=== PATIENT | male | born 1985 | race Caucasian/White ===

== ENCOUNTER → 2021-03-22 | Outpatient (CLI) | payer OTHER ==
--- NOTE | 2021-03-22 16:30 | XR ---
EXAMINATION TYPE: XR knee limited LT DATE OF EXAM: 03/22/2021 COMPARISON: None HISTORY: 35-year-old male with lateral knee pain after kneeling on rocks a couple weeks ago. Patient has sharp needlelike pain TECHNIQUE: AP and lateral views of the left knee were obtained, limited study FINDINGS: No evidence of acute fracture or dislocation of the left knee. The medial and lateral brigitte rtment joint spaces and patellofemoral compartment joint space are well maintained.. Soft tissues are unremarkable. IMPRESSION: 1. No evidence of acute fracture or dislocation of the left knee.
== END | disposition home or self-care (01) ==
LOC: RADXRMAIN 13:51
PROVIDERS: ATTEND Internal Medicine
DX: M25.562 Pain in left knee (principal)

== ENCOUNTER → 2023-11-18 | Outpatient (CLI) | payer OTHER ==
[2023-11-18 15:03] LABS: HCT 46.9 % (39.6-50.0); MCH 31.4 pg (27.0-32.0); MCHC 34.1 g/dL (32.0-37.0); MCV 92.1 FL (80.0-97.0); Mean Platelet Volume 10.3 FL (9.5-12.2); NRBC Per 100 WBC 0 X 10*3/uL (0.00-0.01); Platelet Count 304 X 10*3/uL (140-440); RBC 5.09 X 10*6/uL (4.40-5.60); RDW 12.4 % (11.5-14.5); WBC 6.56 X 10*3/uL (4.50-10.00)
[2023-11-18 15:10] LABS: ALT 75 U/L (10-49); AST 35 U/L (14-35); BUN/Creat Ratio 13.44 Ratio (12.00-20.00); Blood Urea Nitrogen 12.1 mg/dL (9.0-27.0); Calcium 10.1 mg/dL (8.7-10.3); Carbon Dioxide 22.5 mmol/L (21.6-31.8); Chloride 102 mmol/L (96-109); Chol/HDL Ratio 3.59 Ratio; Glucose 110 mg/dL (70-110); LDL Cholesterol,Calculated 106.1 mg/dL (0.0-131.0); Potassium 4.6 mmol/L (3.5-5.5); Sodium 138 mmol/L (135-145)
== END | disposition home or self-care (01) ==
LOC: LABWHC1 09:07
PROVIDERS: ATTEND Internal Medicine Cardiovascular Disease
DX: I10 Essential (primary) hypertension (principal); E78.2 Mixed hyperlipidemia
CPT/HCPCS: 36415; 80048; 80061; 84443; 84450; 84460; 85027

== ENCOUNTER → 2024-01-17 | Outpatient (CLI) | payer OTHER | END | disposition home or self-care (01) | LOC: LABWHC1 10:57 | PROVIDERS: ATTEND Internal Medicine Cardiovascular Disease | DX: I10 Essential (primary) hypertension (principal) | CPT/HCPCS: 36415; 82088; 82533; 83835; 84244 ==

== ENCOUNTER → 2025-01-21 | Outpatient (CLI) | payer OTHER ==
[2025-01-21 14:49] LABS: Basophils # (A) 0.07 X 10*3/uL (0.00-0.10); Basophils % (A) 0.9 %; Eosinophils # (A) 0.26 X 10*3/uL (0.04-0.35); Eosinophils % (A) 3.4 %; HCT 44.7 % (39.6-50.0); HGB 15.6 g/dL (13.0-17.0); Lymphocytes # (A) 2.34 X 10*3/uL (0.90-5.00); Lymphocytes % (A) 30.5 %; MCHC 34.9 g/dL (32.0-37.0); MCV 91.8 FL (80.0-97.0); Monocytes # (A) 0.65 X 10*3/uL (0.20-1.00); Monocytes % (A) 8.5 %; NRBC Per 100 WBC 0 X 10*3/uL (0.00-0.01); Neutrophils # (A) 4.34 X 10*3/uL (1.80-7.70); Neutrophils % (A) 56.6 %; Platelet Count 288 X 10*3/uL (140-440); RBC 4.87 X 10*6/uL (4.40-5.60); RDW 12.2 % (11.5-14.5); WBC 7.67 X 10*3/uL (4.50-10.00)
[2025-01-21 19:09] LABS: Anion Gap 13.1 mmol/L (4.00-12.00); Carbon Dioxide 23.9 mmol/L (21.6-31.8); Potassium 4.2 mmol/L (3.5-5.5)
== END | disposition home or self-care (01) ==
LOC: LABPAT 11:33
PROVIDERS: ATTEND Orthopaedic Surgery
DX: Z01.812 Encounter for preprocedural laboratory examination (principal); M23.91 Unspecified internal derangement of right knee
CPT/HCPCS: 36415; 80051; 85025

== ENCOUNTER 2025-02-01 09:25 | Day surgery (SDC) | payer OTHER ==
--- NOTE | 2025-01-31 14:00 | HP ---
HISTORY AND PHYSICAL DATE OF SURGERY: 02/01/2025. HISTORY OF PRESENT ILLNESS: Ra Riojas, 39-year-old gentleman, seen with progressive right knee pain. We discussed options regarding treatment. He elected to proceed with right knee arthroscopy. Consents obtained. PAST MEDICAL HISTORY: Hypertension. PAST SURGICAL HISTORY: Right knee arthroscopy. DAILY MEDICATIONS: 1. Amlodipine. 2. Metoprolol. ALLERGIES: Codeine. SOCIAL HISTORY: He denies tobacco use. PHYSICAL EVALUATION: Of the right knee, his range of motion is negative 2/3 to 130 degrees. Tenderness on the medial and lateral joint line. Positive medial Tripp's. Positive lateral Tripp's. Ligaments stable. Hip rotation without pain. Distal neurovascular examination is intact. IMAGING DATA: Radiographs of right knee, mild osteoarthritis. MRI right knee, ACL tear, lateral meniscal tear. IMPRESSION: Internal derangement of right knee with lateral meniscal tear and anterior cruciate ligament tear. PLAN: Right knee arthroscopy with partial lateral meniscectomy and debridement. MMODL / IJN: [id number] /
[~2025-02-01 09:25] MED LIST: MIDAZOLAM 2 MG/2 ML VIAL IV PRN; SCOPOLAMINE 1 MG/72 HR PATCH TRANSDERM ONE
[2025-02-01] MEDS: DEXAMETHASONE SOD PHOSPHATE 4 MG/ML 1 ML VIAL IV ONE (10:00)
[2025-02-01] MEDS: ONDANSETRON 4 MG/2 ML VIAL IVP ONE (10:00)
[2025-02-01] MEDS: LACTATED RINGERS 1,000 ML IV SCH (10:01)
[2025-02-01] MEDS: FAMOTIDINE 20 MG/2 ML VIAL IV STA (10:04)
[2025-02-01] MEDS: IV FLUID CONTINUATION 1,000 ML IV ONE ×2 (10:04→11:54)
[2025-02-01] MEDS ORDERED: LIDOCAINE 1% INJ 10MG/ML (20 ML MDV) ONE (10:36)
[2025-02-01] MEDS ORDERED: SUCCINYLCHOLINE CHLORIDE 200 MG/10 ML VIAL IV ONE (10:36)
[2025-02-01] MEDS ORDERED: KETOROLAC 15 MG/ML 1 ML VIAL ONE (10:36)
[2025-02-01] MEDS ORDERED: PROPOFOL 10 MG/ML 20 ML VIAL IV ONE (10:36)
[2025-02-01] MEDS ORDERED: fentaNYL (PF) 50 MCG/ML 2 ML AMP ONE (10:36)
[2025-02-01] MEDS ORDERED: MIDAZOLAM 2 MG/2 ML VIAL ONE (10:36)
[2025-02-01] MEDS: ceFAZolin 2 GM in DEXTROSE 5% IN WATER 50 ML IVPB PRN (10:40)
[2025-02-01] MEDS: BUPIVACAINE (PF) 0.25% 30 ML VIAL SQ ONE (11:12)
[2025-02-01 11:45] VITALS: RESP 16; TEMP 97.5
[2025-02-01] MEDS: fentaNYL (PF) 50 MCG/ML 2 ML AMP IV PRN (11:50)
--- NOTE | 2025-02-01 11:51 | P.OP ---
Date of Procedure: 02/01/25 Preoperative Diagnosis: Internal derangement right knee Postoperative Diagnosis: 1. Tear medial and lateral meniscus right knee 2. Reactive synovitis medial, lateral and suprapatellar compartments right knee 3. 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 Grade II/III chondromalacia lateral femoral condyle right knee 5. ACL tear right knee Procedure(s) Performed: 1. Arthroscopic partial medial and lateral meniscectomy right knee 2. Arthroscopic partial synovectomy medial, lateral and suprapatellar compartments right knee 3. Arthroscopic chondroplasty medial femoral condyle right knee 4. Arthroscopic chondroplasty lateral femoral condyle right knee Anesthesia: KESHAWNA, local Surgeon: Ever Carrillo Estimated Blood Loss (ml): 5 Pathology: none sent Condition: stable Disposition: PACU Indications for Procedure: 39-year-old patient seen with progressive right knee pain. After having treatment options discussed, he elected to proceed with arthroscopy. Operative Findings: See description of procedure Description of Procedure: Patient was taken to the operative suite. Patient underwent a general anesthetic by the department of anesthesia. Patient was given preoperative antibiotics. The right lower extremity was placed in a well-padded arthroscopic leg mondragon. The right leg was prepped and draped in the normal sterile orthopedic fashion. A lateral parapatellar and suprapatellar incision was made. Trochars were inserted. Arthroscopy was initiated. Suprapatellar pouch revealed diffuse thick reactive synovitis. The patellofemoral joint appeared to articulate congruently. There was no significant chondromalacia involving the patellofemoral joint. The scope was guided into the medial gutter. No loose bodies or plica were identified the scope was then guided into the medial compartment. A medial parapatellar incision was made. Trocar inserted followed by probe. There was a tear involving the posterior horn medial meniscus. There were grade I/II chondromalacia changes of the medial femoral condyle with some osteochondral flap tears. There was thick reactive synovitis anteriorly. I performed a partial medial meniscectomy getting down to stable meniscal tissue. I performed a chondroplasty of the medial femoral condyle getting down to stable osteochondral tissue. I performed a partial synovectomy decompressing the thick reactive synovitis anteriorly. The residual meniscus was probed and was found to be stable. The residual osteochondral surface appeared stable. Again noting grade I/II chondromalacia. There was good decompression of the synovitis. Scope and probe were then guided into the intercondylar notch. The anterior crucial ligament was absent with no remnants remaining consistent with a chronic tear. The PCL appeared stable.. The scope and probe were then guided into lateral compartment. There was a tear involving the posterior horn of the lateral meniscus. There were grade II/III chondromalacia changes of the lateral femoral condyle with some osteochondral flap tears. There was thick reactive synovitis anteriorly. I performed a partial lateral meniscectomy getting down to stable meniscal tissue. I performed a chondroplasty of the lateral femoral condyle getting down to stable osteochondral tissue. I performed a partial synovectomy decompressing the reactive synovitis. The residual meniscus was probed and was found to be stable. The residual osteochondral surface was stable again noting grade II/III chondromalacia of the lateral femoral condyle. There was good decompression of the synovitis. The scope was in guided back into the suprapatellar compartment. I introduced a motorized shaver into the suprapatellar compartment. I debrided some piecemeal fragments of meniscus I encountered. I performed a partial synovectomy. The shaver was now removed. There was good decompression of the synovitis. I now took 1 more look around the entire knee, no residual debris. Instruments were now removed from the joint. The joint was infiltrated with .25% Marcaine. Steri-Strips were applied to the portal sites. Sterile dressings were applied. The patient was placed into a KEM hose. No tourniquet was utilized. The patient was awakened, transferred to a bed and taken to recovery stable satisfactory condition.
[2025-02-01 12:54] VITALS: BP 123/88; PULSE 85
== END 2025-02-01 13:24 | disposition home or self-care (01) ==
LOC: OR 09:25
PROVIDERS: ATTEND Orthopaedic Surgery
DX: S83.281A Other tear of lateral meniscus, current injury, right knee, initial encounter (principal); S83.241A Other tear of medial meniscus, current injury, right knee, initial encounter; S83.511A Sprain of anterior cruciate ligament of right knee, initial encounter; M17.11 Unilateral primary osteoarthritis, right knee; M94.261 Chondromalacia, right knee; M65.861 Other synovitis and tenosynovitis, right lower leg; I10 Essential (primary) hypertension; K21.9 Gastro-esophageal reflux disease without esophagitis; Z79.899 Other long term (current) drug therapy; Z87.891 Personal history of nicotine dependence; Z88.5 Allergy status to narcotic agent; X58.XXXA Exposure to other specified factors, initial encounter
CPT/HCPCS: 29880; 29876; J2250; J0330; J1100; J0690; J2405; J2003; J3010; J3490; J1885; J2704; J0665

== ENCOUNTER → 2025-04-13 | Outpatient (CLI) | payer OTHER ==
--- NOTE | 2025-04-13 16:15 | US ---
EXAMINATION TYPE: US venous doppler duplex LE RT DATE OF EXAM: 04/13/2025 4:02 PM COMPARISON: NONE CLINICAL INDICATION: Male, 39 years old with history of RIGHT I80.9 PHLEBITIS AND THROMBOPHLEBITIS OF UNSP; knee surgery February 01, edema, Pain TECHNIQUE: The lower extremity deep venous system is examined utilizing real time linear array sonog bela with graded compression, color doppler sonography, and spectral doppler. SIDE PERFORMED: Right FINDINGS: VESSELS IMAGED: Common Femoral Vein Deep Femoral Vein Greater Saphenous Vein * Femoral Vein Popliteal Vein Small Saphenous Vein * Proximal Calf Veins (* superficial vessels) Right Leg: Negative for DVT, Color Doppler imaging shows patency of the vessels. Spectral waveforms are within normal limits. exa limited by edema complex collection measures 5.4x1.7x4.7cm at the posterior knee arising from the joint space IMPRESSION: 1. No ultrasound evidence for deep venous thrombosis. 2. Complex popliteal fossa cyst posterior to the right knee. Consider further evaluation with MRI as clinically warranted. [facility], , 04/13/2025 4:12 PM
== END | disposition home or self-care (01) ==
LOC: RADUSWWP 15:27
PROVIDERS: ATTEND Orthopaedic Surgery
DX: M71.21 Synovial cyst of popliteal space [Baker], right knee (principal); I80.9 Phlebitis and thrombophlebitis of unspecified site; R60.9 Edema, unspecified

== ENCOUNTER 2025-05-10 20:15 | Emergency (ER) | payer OTHER ==
[2025-05-10 20:44] VITALS: BP 195/91; PULSE 89; RESP 22; TEMP 98.6
[2025-05-10] MEDS: LORazepam 1 MG/0.5 ML VIAL IM STA (20:53)
[2025-05-10] MEDS: HALOPERIDOL LACTATE 5 MG/ML 1 ML VIAL IM STA (20:53)
--- NOTE | 2025-05-10 21:00 | ED ---
General Adult HPI - General Source: patient, police, EMS, RN notes reviewed Mode of arrival: EMS Limitations: no limitations <Ismael Michael - Last Filed: 05/10/25 20:54> - General Source: patient, police, EMS, RN notes reviewed, old records reviewed Mode of arrival: EMS Limitations: no limitations - History of Present Illness -: unknown Consistency: constant Improves with: none Associated Symptoms: confusion Treatments Prior to Arrival: none <Prabhu Meza - Last Filed: 05/11/25 00:54> - General Chief complaint: Psychiatric Symptoms Stated complaint: Mental health Time Seen by Provider: 05/10/25 20:22 - History of Present Illness Initial comments: Patient is a 39-year-old male presenting to the emergency department by police patrol lieutenant escort for mental health evaluation. Patient reportedly told officers he had suicidal thoughts. Patient admits to being agitated following an argument with his . Patient admits to drinking alcohol, will not state how much. Patient will not consent to breathalyzer. Patient denies any new physical complaints. No homicidal thoughts. Patient denies hallucinations. Patient does have history of PTSD and states he has been taking his medications. Patient is very agitated and keeps yelling that he has been lied to. (Ismael Michael) This is a 39-year-old male by PD for mental health evaluation, patient is under petition (Prabhu Meza) - Related Data Home Medications Medication Instructions Recorded Confirmed Otc Tums 1 tab PO DIRECTED PRN 01/27/25 02/01/25 Acetaminophen [Tylenol Extra 500 mg PO DIRECTED PRN 01/27/25 02/01/25 Strength] Ergocalciferol [Vitamin D2 (1250 1,250 mcg PO ANTONIO 01/27/25 02/01/25 Mcg = 96455 Iu)] Famotidine 20 mg PO DAILY 01/27/25 02/01/25 Metoprolol Succinate [Toprol XL] 100 mg PO DAILY 01/27/25 02/01/25 amLODIPine BESYLATE [Amlodipine 10 mg PO DAILY 01/27/25 02/01/25 Besylate] Previous Rx's Medication Instructions Recorded HYDROcodone/APAP 5-325MG [[place] 1 tab PO Q6HR PRN 3 Days #12 tab 02/01/25 5-325] Allergies Allergy/AdvReac Type Severity Reaction Status Date / Time codeine Allergy Rash/Hives Verified 02/01/25 09:38 tramadol Allergy tingling, Verified 02/01/25 09:38 flushed Review of Systems ROS Other: All systems not noted in ROS Statement are negative. Constitutional: Denies: fever Eyes: Denies: eye pain ENT: Denies: ear pain Cardiovascular: Denies: palpitations Psychiatric: Reports: as per HPI <Ismael Michael - Last Filed: 05/10/25 20:54> ROS Other: All systems not noted in ROS Statement are negative. <Prabhu Meza - Last Filed: 05/11/25 00:54> ROS Statement: Those systems with pertinent positive or pertinent negative responses have been documented in the HPI. Past Medical History Past Medical History: GERD/Reflux, Osteoarthritis (OA) Additional Past Medical History / Comment(s): epigastric pain, deviated septum History of Any Multi-Drug Resistant Organisms: None Reported Past Surgical History: Orthopedic Surgery Additional Past Surgical History / Comment(s): arthroscopy rt knee, oral surgery Past Anesthesia/Blood Transfusion Reactions: No Reported Reaction Past Psychological History: No Psychological Hx Reported Past Alcohol Use History: Daily, Heavy - Past Family History Brother(s) Family Medical History: Cancer Additional Family Medical History / Comment(s): melanoma Mother Family Medical History: No Reported History <Ismael Michael - Last Filed: 05/10/25 20:54> General Exam Limitations: no limitations General appearance: alert (Agitated) Head exam: Present: atraumatic Eye exam: Present: normal appearance Respiratory exam: Present: normal lung sounds bilaterally Cardiovascular Exam: Present: regular rate, normal rhythm GI/Abdominal exam: Present: soft. Absent: tenderness Extremities exam: Present: normal inspection Neurological exam: Present: alert Psychiatric exam: Present: agitated Expanded Focused psych exam: Present: perseverating (Regarding being lied to that he was supposed to go to the [facility] restlessness Skin exam: Present: normal color <Ismael Michael - Last Filed: 05/10/25 20:54> General appearance: alert, in no apparent distress Head exam: Present: atraumatic, normocephalic, normal inspection Eye exam: Present: normal appearance, PERRL, EOMI. Absent: scleral icterus, conjunctival injection, periorbital swelling ENT exam: Present: normal exam, mucous membranes moist Neck exam: Present: normal inspection. Absent: tenderness, meningismus, lymphadenopathy Respiratory exam: Present: normal lung sounds bilaterally. Absent: respiratory distress, wheezes, rales, rhonchi, stridor Cardiovascular Exam: Present: regular rate, normal rhythm, normal heart sounds. Absent: systolic murmur, diastolic murmur, rubs, gallop, clicks GI/Abdominal exam: Present: soft, normal bowel sounds. Absent: distended, tenderness, guarding, rebound, rigid Extremities exam: Present: normal inspection, full ROM, normal capillary refill. Absent: tenderness, pedal edema, joint swelling, calf tenderness Back exam: Present: normal inspection Neurological exam: Present: alert, oriented X3, CN II-XII intact Psychiatric exam: Present: normal affect, normal mood Skin exam: Present: warm, dry, intact, normal color. Absent: rash <Prabhu Meza - Last Filed: 05/11/25 00:54> Course <Prabhu Meza - Last Filed: 05/11/25 00:54> Vital Signs 05/10/25 20:16 Temperature 98.6 F Pulse Rate 89 Respiratory 22 Rate Blood Pressure 195/91 O2 Sat by Pulse 98 Oximetry - Reevaluation(s) Reevaluation #1: 05/11/25 00:53 Medical records reviewed (Prabhu Meza) Reevaluation #2: 05/11/25 00:53 Medical cleared for psychiatric evaluation (Prabhu Meza) Reevaluation #3: Was pt. sent in by a medical professional or institution (, PA, FIBRE TECHNOLOGIST, urgent care, hospital, or alf...) When possible be specific @ -no Did you speak to anyone other than the patient for history (EMS, parent, family, police, friend...)? What history was obtained from this source @ -no Did you review nursing and triage notes (agree or disagree)? Why? @ -agree Are old charts reviewed (outside hosp., previous admission, EMS record, old EKG, old radiological studies, urgent care reports/EKG's, alf records)? Report findings @ -yes Differential Diagnosis (chest pain, altered mental status, abdominal pain women, abdominal pain men, vaginal bleeding, weakness, fever, dyspnea, syncope, headache, dizziness, GI bleed, back pain, seizure, CVA, palpatations, mental health, musculoskeletal)? @ -prior EKG interpreted by me (3pts min.). @ -yes X-rays interpreted by me (1pt min.). @ -yes negative for acute disease CT interpreted by me (1pt min.). @ -no U/S interpreted by me (1pt. min.). @ -no What testing was considered but not performed or refused? (CT, X-rays, U/S, labs)? Why? @ -none What meds were considered but not given or refused? Why? @ -none Did you discuss the management of the patient with other professionals (professionals i.e. , PA, FIBRE TECHNOLOGIST, lab, RT, psych nurse, executive secretary social welfare, draw frame tender, teacher, district resource officer, vocational case manager)? Give summary @ -no Was smoking cessation discussed for >3mins.? @ -no Was critical care preformed (if so, how long)? @ -no Were there social determinants of health that impacted care today? How? (Homelessness, low income, unemployed, alcoholism, drug addiction, transportation, low edu. Level, literacy, decrease access to med. care, long-term, rehab)? @ -none Was there de-escalation of care discussed even if they declined (Discuss DNR or withdrawal of care, Hospice)? DNR status @ -no What co-morbidities impacted this encounter? (DM, HTN, Smoking, COPD, CAD, Cancer, CVA, ARF, Chemo, Hep., AIDS, mental health diagnosis, sleep apnea, morbid obesity)? @ -none Was patient admitted / discharged? Hospital course, mention meds given and route, prescriptions, significant lab abnormalities, going to OR and other pertinent info. @ - Undiagnosed new problem with uncertain prognosis? @ -no Drug Therapy requiring intensive monitoring for toxicity (Heparin, Nitro, Insulin, Cardizem)? @ -no Were any procedures done? @ -no Diagnosis/symptom? @ - Acute, or Chronic, or Acute on Chronic? @ -Acute Uncomplicated (without systemic symptoms) or Complicated (systemic symptoms)? @ -Complicated Side effects of treatment? @ -no Exacerbation, Progression, or Severe Exacerbation? @ -exacerbation Poses a threat to life or bodily function? How? (Chest pain, USA, NM, pneumonia, PE, COPD, DKA, ARF, appy, cholecystitis, CVA, Diverticulitis, Homicidal, Suicidal, threat to staff... and all critical care pts) @ -yes (Prabhu Meza) Reevaluation #4: Differential Mental Health Depression, anxiety, bipolar, psychosis, schizophrenia, borderline personality, situational depression, adjustment disorder, behavioral disorder, brain tumor, malingering, substance abuse, encephalopathy, medication reaction, dementia, hypothyroidism, degenerative neurologic disorder, lupus.... This is not meant to be all-inclusive list (Prabhu Meza) Procedures - Restraint - Face to Face Restraint Occurrence 1 Patient's Immediate Situation: Endangers self safety, Endangers others' safety, Endangers staff safety, Violent behavior Patient's Reaction to the Intervention: Uncooperative, Angry Patient's Medical & Behavioral Condition: Awake, Alert Need to Continue or Terminate Restraint or Seclusion: Continue Face to Face Eval of Restraint Date: 05/10/25 Face to Face Eval of Restraint Time: 20:40 <Ismael Michael - Last Filed: 05/10/25 20:54> Medical Decision Making <Ismael Michael - Last Filed: 05/10/25 20:54> <Prabhu Meza - Last Filed: 05/11/25 00:54> - Medical Decision Making Was pt. sent in by a medical professional or institution (, PA, FIBRE TECHNOLOGIST, urgent care, hospital, or alf...) When possible be specific @ -Patient brought in by police officers Did you speak to anyone other than the patient for history (EMS, parent, family, police, friend...)? What history was obtained from this source @ -Police officers and EMS Did you review nursing and triage notes (agree or disagree)? Why? @ -[I reviewed and agree with nursing and triage notes] Were old charts reviewed (outside hosp., previous admission, EMS record, old EKG, old radiological studies, urgent care reports/EKG's, alf records)? Report findings @ -[No old charts were reviewed] Differential Diagnosis (chest pain, altered mental status, abdominal pain women, abdominal pain men, vaginal bleeding, weakness, fever, dyspnea, syncope, headache, dizziness, GI bleed, back pain, seizure, CVA, palpatations, mental health, musculoskeletal)? @ -Differential Mental Health Depression, anxiety, bipolar, psychosis, schizophrenia, borderline personality, situational depression, adjustment disorder, behavioral disorder, brain tumor, malingering, substance abuse, encephalopathy, medication reaction, dementia, hypothyroidism, degenerative neurologic disorder, lupus.... This is not meant to be all-inclusive list EKG interpreted by me (3pts min.). @ -[As above] X-rays interpreted by me (1pt min.). @ -[None done] CT interpreted by me (1pt min.). @ -[None done] U/S interpreted by me (1pt. min.). @ -[None done] What testing was considered but not performed or refused? (CT, X-rays, U/S, labs)? Why? @ -[None] What meds were considered but not given or refused? Why? @ -[None] Did you discuss the management of the patient with other professionals (professionals i.e. , PA, FIBRE TECHNOLOGIST, lab, RT, psych nurse, executive secretary social welfare, draw frame tender, teacher, district resource officer, vocational case manager)? Give summary @ -Mental health nurse Was smoking cessation discussed for >3mins.? @ -[No] Was critical care preformed (if so, how long)? @ -[No] Were there social determinants of health that impacted care today? How? (Homelessness, low income, unemployed, alcoholism, drug addiction, transportation, low edu. Level, literacy, decrease access to med. care, long-term, rehab)? @ -[No] Was there de-escalation of care discussed even if they declined (Discuss DNR or withdrawal of care, Hospice)? DNR status @ -[No] What co-morbidities impacted this encounter? (DM, HTN, Smoking, COPD, CAD, Cancer, CVA, ARF, Chemo, Hep., AIDS, mental health diagnosis, sleep apnea, morbid obesity)? @ -PTSD Was patient admitted / discharged? Hospital course, mention meds given and route, prescriptions, significant lab abnormalities, going to OR and other pertinent info. @ -Patient presents for mental health evaluation. Patient reportedly made statements with desire to harm himself. Patient will be cleared for mental health evaluation. Case endorsed to currency examiner Dr. Hurley at shift change. (Ismael Michael) 39 male seen and evaluated by psychiatry here in the ER, patient is deemed safe plan and stable for discharge home (Prabhu Meza) - Lab Data Lab Results 05/10/25 Range/Units 22:33 Urine Opiates Screen Not Detected (NotDetected) Ur Oxycodone Screen Not Detected (NotDetected) Urine Methadone Screen Not Detected (NotDetected) Ur Barbiturates Screen Not Detected (NotDetected) U Tricyclic Antidepress Not Detected (NotDetected) Ur Phencyclidine Scrn Not Detected (NotDetected) Ur Amphetamines Screen Not Detected (NotDetected) U Methamphetamines Scrn Not Detected (NotDetected) U Benzodiazepines Scrn Detected H (NotDetected) Urine Cocaine Screen Not Detected (NotDetected) U Marijuana (THC) Screen Detected H (NotDetected) Disposition <Ismael Michael - Last Filed: 05/10/25 20:54> Is patient prescribed a controlled substance at d/c from ED?: No <Prabhu Meza - Last Filed: 05/11/25 00:54> Clinical Impression: Mood disorder Disposition: HOME SELF-CARE Condition: Fair Instructions (If sedation given, give patient instructions): Mood Disorders (ED) Referrals: None,Stated [REFERRING] - 1-2 days
[2025-05-10 23:36] LABS: Barbiturate Screen,Urine Not Detected (NotDetected); Benzodiazepines Screen,Urine Detected (NotDetected); Opiate Screen,Urine Not Detected (NotDetected); Oxycodone Screen, Urine Not Detected (NotDetected); Phencyclidine Screen,Urine Not Detected (NotDetected); Tricyclic Antidepressant,Urine Not Detected (NotDetected); Urn Cannabinoid Scrn Detected (NotDetected)
== END 2025-05-11 01:11 | disposition home or self-care (01) ==
LOC: EC 20:15
DX: F39 Unspecified mood [affective] disorder (principal); Z88.5 Allergy status to narcotic agent; Z88.8 Allergy status to other drugs, medicaments and biological substances
CPT/HCPCS: 96372; 82075; 80306; 99285; J2060; J1630